=== PATIENT | female | born 1995 | race Caucasian/White ===

== ENCOUNTER 2022-07-04 08:19 | Outpatient (CLI) | payer OTHER, SELFPAY ==
[2022-07-04 09:55] LABS: Cholesterol* 192 mg/dL (90-199)
[2022-07-04 09:56] LABS: HDL Cholesterol* 38 mg/dL (>=50); LDL Cholesterol Calculated 126 mg/dL (<100); Triglycerides* 142 mg/dL (40-149)
== END 2022-07-04 08:20 | disposition home or self-care (01) ==
LOC: NFLDREF 08:20
PROVIDERS: Visit Provider Physician Assistant
DX: Z13.6 Encounter for screening for cardiovascular disorders (principal)
CPT/HCPCS: 80061

== ENCOUNTER 2023-07-21 12:53 | Outpatient (CLI) | payer OTHER, SELFPAY | END 2023-07-21 12:54 | disposition home or self-care (01) | LOC: NFLDREF 12:54 | PROVIDERS: Visit Provider Physician Assistant | DX: Z13.1 Encounter for screening for diabetes mellitus (principal); Z13.220 Encounter for screening for lipoid disorders | CPT/HCPCS: 80061; 82947 ==

== ENCOUNTER 2023-12-15 12:53 | Outpatient (CLI) | payer OTHER, SELFPAY | END 2023-12-15 12:54 | disposition home or self-care (01) | PROVIDERS: Visit Provider Advanced Practice Midwife | DX: Z34.91 Encounter for supervision of normal pregnancy, unspecified, first trimester (principal) | CPT/HCPCS: 86592; 86703; 86704; 86706; 86762; 86787; 86803; 86850; 86900; 86901; 87086; 87340 ==

== ENCOUNTER 2023-12-15 13:06 | Outpatient (CLI) | payer OTHER, SELFPAY ==
--- NOTE | 2023-12-15 13:00 | US_ITS ---
Patient: HAYLEY ANGELES Facility:?[facility] R[facility] Patient ID:?[id number] Site Patient ID:?[id number]. Site :?1995 Study:?US-OB Pelvis DATING AND VIABILITY-12/15/2023 1:47:42 PM Ordering Physician:?LAWRENCE LEONARDO Final Report: INDICATION: First trimester scan, establish dates. COMPARISON: None. TECHNIQUE: Real-time alston-scale imaging of the pelvis was performed. FINDINGS: Sonographic imaging demonstrates a single living intrauterine gestation. The embryo demonstrates a cardiac rate measuring 90 beats per minute. The embryo`s crown-rump length measurement of 0.22 cm corresponds to a gestational age of 5 weeks 5 days with a sonographic due date of 08/11/2024. There is a normal- appearing yolk sac. There are no gross abnormalities noted within the embryo at this early state of development. The gestational sac has a normal appearance. There is no evidence of a perigestational hemorrhage. The amount of fluid within the sac appears appropriate for gestational age. The cervix is closed. The myometrium appears normal. The ovaries are of normal size. Corpus luteal cyst right ovary. There are no suspicious fluid collections noted in the cul-de-sac. IMPRESSION: Single living intrauterine with sonographic gestational age 5 weeks 5 days and sonographic due date of 08/11/2024. heart rate is slightly low, due to very early IUP. Follow-up in 2-3 weeks recommended. Dictated by Clement Howard MD @ 12/16/2023 5:42:13 AM Signed by:?Clement Howard MD @12/16/2023 5:42:13 AM (Electronic Signature)
== END 2023-12-15 13:07 | disposition home or self-care (01) ==
LOC: US 13:07
PROVIDERS: Visit Provider Physician Assistant
DX: Z34.91 Encounter for supervision of normal pregnancy, unspecified, first trimester (principal); O36.8310 Maternal care for abnormalities of the fetal heart rate or rhythm, first trimester, not applicable or unspecified; Z3A.01 Less than 8 weeks gestation of pregnancy
CPT/HCPCS: 76817

== ENCOUNTER 2023-12-21 09:18 | Outpatient (CLI) | payer OTHER, SELFPAY | END 2023-12-21 09:19 | disposition home or self-care (01) | LOC: NFLDREF 09:19 | PROVIDERS: PCP Advanced Practice Midwife; Visit Provider Advanced Practice Midwife | DX: O20.0 Threatened abortion (principal); Z3A.01 Less than 8 weeks gestation of pregnancy | CPT/HCPCS: 84702 ==

== ENCOUNTER 2023-12-23 11:48 | Outpatient (CLI) | payer OTHER, SELFPAY | END 2023-12-23 11:49 | disposition home or self-care (01) | LOC: NFLDREF 12-25 10:54 | PROVIDERS: Visit Provider Advanced Practice Midwife | DX: O20.0 Threatened abortion (principal); Z3A.01 Less than 8 weeks gestation of pregnancy | CPT/HCPCS: 84702 ==

== ENCOUNTER 2023-12-24 11:08 | Outpatient (CLI) | payer OTHER, SELFPAY | END 2023-12-24 11:09 | disposition home or self-care (01) | LOC: NFLDREF 11:09 | PROVIDERS: Visit Provider Physician Assistant | DX: O20.0 Threatened abortion (principal) | CPT/HCPCS: 76817; J2791 ==

== ENCOUNTER 2023-12-29 13:38 | Outpatient (CLI) | payer OTHER, SELFPAY ==
--- NOTE | 2023-12-29 14:00 | US_ITS ---
Patient: HAYLEY ANGELES Facility:?[facility] Patient ID:?[id number] Site Patient ID:?[id number]. Site :?1995 Study:?US-OB Pelvis -12/29/2023 2:09:51 PM Ordering Physician:JESUS GATICA Final Report: INDICATION: Recurrent loss Comparison ultrasound 12/24/2023, 12/15/2023 TECHNIQUE: Real-time alston-scale imaging of the pelvis was performed. FINDINGS: Presence of intrauterine with crown-rump length measuring 5 millimeters corresponding to 6 weeks 1 day with. Gestational sac measures 2.3 centimeters cardiac activity not detected on color Doppler. M-mode Doppler was not obtained. No perigestational hemorrhage. IMPRESSION: Intrauterine with crown-rump length measuring 5 millimeters corresponding to 6 weeks 1 day cardiac activity was not detected by color Doppler when previously documented on 12/15/2023. Findings likely reflect demise. However to be conservative follow-up ultrasound would be recommended with M mode documentation of presence or absence of cardiac activity. Dictated by Yumiko Morse MD @ 12/30/2023 5:49:52 AM Signed by:?Yumiko Morse MD @12/31/2023 9:24:08 AM (Electronic Signature)
== END 2023-12-29 13:39 | disposition home or self-care (01) ==
LOC: US 13:38
PROVIDERS: Visit Provider Advanced Practice Midwife
DX: O26.21 Pregnancy care for patient with recurrent pregnancy loss, first trimester (principal); Z3A.01 Less than 8 weeks gestation of pregnancy
CPT/HCPCS: 76817

== ENCOUNTER 2023-12-31 08:40 | Day surgery (SDC) | payer OTHER, SELFPAY ==
[2023-12-31] MEDS: LACTATED RINGERS 1000 ML 1,000 ML 100 ML IV (08:50)
[2023-12-31 09:04] VITALS: BMI 32.8
[2023-12-31 09:07] VITALS: BP 120/82; PULSE 100; RESP 16; TEMP 36.7; O2SAT 99
[2023-12-31] MEDS: SODIUM CHLORIDE 0.9 % (FLUSH) 10 ML SYRINGE IVF (09:20)
[2023-12-31 09:24] LABS: Hemoglobin* 14.5 gm/dL (12.0-16.0)
[2023-12-31] MEDS: DOXYCYCLINE HYCLATE 100 MG 200 MG PO (09:48)
[2023-12-31] MEDS: LIDOCAINE 1% MDV 20 ML INJECTION (10:51)
[2023-12-31] MEDS: miSOPROStoL 800 MCG/4 TABLET PR (11:01)
[2023-12-31 11:15] VITALS: BP 116/70; PULSE 66; RESP 16; TEMP 36.4; O2SAT 99
--- NOTE | 2023-12-31 11:15 | W.ANESCHARGE ---
Anesthesia Charges Start Date/Time Anesthesia Start Date: 12/31/23 Anesthesia Start Time: 10:34 Stop Date/Time Anesthesia Stop Date: 12/31/23 Anesthesia Stop Time: 11:15
[2023-12-31 11:30] VITALS: BP 115/74; PULSE 64; RESP 16; O2SAT 99
--- NOTE | 2023-12-31 11:30 | W.PM.GYNPROC ---
Procedure Note Date of procedure: 12/31/23 [address] [facility] bill your pro fee for this procedure?: Yes Pre-op diagnosis: Missed Post-op diagnosis: Missed Procedure: Suction, dilation and curettage Anesthesia: MAC Complications: None Surgeon: Cody Chamberlain MD Estimated blood loss (mL): 5 IV fluids (mL): 800 Urine Output (mL): 300 Pathology: specimen obtained, sent to pathology (Products of conception, microarray genetic testing) Condition: stable Disposition: same day Findings: Speculum exam: Cervix with evidence of previous cerclage, no abnormal discharge. Cervix slightly dilated, easy passage of dilators up to 7-8mm. Uterine sound of 8cm. Procedure Description: Risks, benefits, alternatives, and indications of the procedure were discussed with the patient. She voiced an understanding of the procedure and signed the consent. The patient was taken to the OR were MAC anesthesia was administered without difficulty. She was placed in the dorsal lithotomy position with Binu type stirrups. The patient was prepared and draped in the normal sterile fashion. Her bladder was emptied with in--out catheter. A bivalved speculum was inserted in the posterior aspect of the vagina. 5 mL 1% lidocaine was injected in the anterior lip of cervix, the single-tooth tenaculum was used to grasp the anterior lip of the cervix. The uterus was carefully sounded to 8 cm. Cervix was sequentially dilated with Hegar dilators up to 8mm. A 7 mm suction curette was advanced to the uterine fundus. The suction was then started. The products of conception were evacuated with the curette rotating on the outward movement, 3 passes completed. Afterwards a gentle, sharp curettage was then performed with a large curette. An 8mm suction curette was advanced to the uterine fundus. The suction was then started. Only blood noted to see coming out. The tenaculum was removed from the cervix and good hemostasis was noted after application of silver nitrate. 800mcg of rectal Cytotec placed. The patient tolerated the procedure well. Instrument and sponge counts were correct x2. Patient was taken to the recovery room in a stable condition. The patient will go home after recovering from anesthesia and meeting all the criteria for discharge. She was given the instructions regarding follow-up visit in 2 [facility] and instructions for pain medication.
--- NOTE | 2023-12-31 11:42 | W.PM.H&PU ---
History & Physical Update History & Physical Update H&P Reviewed and patient assessed: No changes noted
[2023-12-31 11:45] VITALS: BP 114/70; PULSE 66; RESP 16; O2SAT 99
[2023-12-31 12:00] VITALS: BP 115/77; PULSE 66; RESP 16; O2SAT 99
[2023-12-31 12:15] VITALS: BP 112/74; PULSE 70; RESP 16; O2SAT 99
== END 2023-12-31 12:23 | disposition home or self-care (01) ==
LOC: OR 08:40
PROVIDERS: Visit Provider Obstetrics & Gynecology
PROC: (CPT 59820; principal; 2023-12-31 10:00)
DX: O02.1 Missed abortion (principal)
CPT/HCPCS: 59820; 01965; 36415; 81229; 85018; 88305; A9270; J1100; J1630; J1885; J2250; J2405; J2704; J3010; J7120

== ENCOUNTER 2024-01-03 11:27 | Emergency (ER) | payer OTHER, SELFPAY ==
[2024-01-03] VITALS (23 sets, daily range): BP systolic 113–149; BP diastolic 55–106; PULSE 63–109; RESP 16–24; TEMP 36.9; O2SAT 94–99
--- NOTE | 2024-01-03 11:36 | ED_ITS ---
HPI - Abdominal Pain General Chief Complaint: Abdominal Pain Stated Complaint: cramping/pain abd Time Seen by Provider: 01/03/24 11:33 History of Present Illness HPI narrative: This 28-year-old female comes in with severe abdominal pain that began this morning. She had a miscarriage with subsequent D and C3 days ago. She states that very severe and somewhat crampy pain in her lower abdomen began this morning. She does not report any fevers or dysuria symptoms. Related Data Home Medications Medication Instructions Recorded Confirmed Lactobacillus rhamnosus GG 20 cell PO 12/15/23 12/29/23 billion cell capsule (Probiotic Digestive Care) docosahexaenoic acid 200 mg mg PO 12/15/23 12/29/23 capsule ( DHA) Previous Rx's Medication Instructions Recorded acetaminophen 500 mg tablet 1,000 mg (2 x 500 mg) PO Q6H PRN 12/31/23 Pain #10 tabs ibuprofen 600 mg tablet 600 mg PO Q6H PRN Pain #15 tabs 12/31/23 hydrocodone 5 mg-acetaminophen 325 1 tab PO Q4-6H PRN pain #15 tabs 01/03/24 mg tablet ketorolac 10 mg tablet 10 mg PO Q8H 5 days #15 tabs 01/03/24 Allergies Allergy/AdvReac Type Severity Reaction Status Date / Time chlorhexidine Allergy Unknown Unknown Verified 01/03/24 12:28 Review of Systems Status of ROS Reports: 10 or more systems reviewed and unremarkable except as noted in History and below Narrative Constitutional: No fevers, no weight gain or loss. Eyes: No discharge. No vision changes. HENT: No congestion, no sore throat, no ear pain. Cardiovascular: No chest pain, no palpitations. Respiratory: No shortness of breath, no wheezes, no cough. Gastrointestinal: Severe lower abdominal pain. Genitourinary: No dysuria, no hematuria. Musculoskeletal: Normal range of motion. Skin: No rashes, no pruritis. Neurological: No dizziness, weakness, sensory change, speech change. Endo/Heme/Allergies: No bruising or bleeding. No polydipsia. Pysch: no suicidality, no anxiety, no insomnia. All other systems reviewed and are negative. 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 Nonsmoker. No alcohol use. Feels safe at home and no concerns with abuse. What is your current living situation?: I presently have a place to live Problems where you live: no known problems In the past 12 months, utilities in danger of being shut off: no In past 12 months, lack of transportation kept you from medical appts, meetings, work, or getting things needed for daily living: no In the past 12 mos, have been you worried that your food would run out before you had money to buy more?: never true In the past 12 mos, the food you bought just didn't last and you didn't have money to buy more?: never true Smoking Status: Never smoker Do you use any of these nicotine containing products: None How often do you have a drink containing alcohol: never How often do you have six or more drinks on one occasion: Never AUDIT-C Alcohol total score: 0 Non-prescribed substance use: denies use Caffeine: Yes How often does anyone, including family, friends and others, physically hurt you : never How often does anyone, including family, friends and others, insult or talk down to you: never How often does anyone, including family, friends and others, threaten you with harm: never How often does anyone, including family, friends and others, scream or curse at you: never Little interest or pleasure in doing things: not at all Feeling down, depressed, or hopeless: not at all Are you using contraception or practicing any form of control: No Exam Narrative: Exam Narrative: Constitutional: Well-developed, well-nourished, no acute distress. HEENT: Normocephalic, atraumatic. Neck: Normal range of motion. Nontender. Supple. Heart: Regular. No murmurs. Normal rate. Intact distal pulses. Lungs: Clear to auscultation. No chest discomfort. No wheezes, rhonchi, or rales. Abdomen: Severe lower abdominal pain with some constant and crampy features. Genitalia: Deferred. Back: No midline tenderness. Normal range of motion. Extremities: Normal range of motion. No injury. Skin: Intact. No rash. Warm. No erythema or pallor. Neurologic: No altered sensation. No weakness. Alert and oriented. Psychiatric: No suicidality. No anxiety or depression. No insomnia. Nursing notes and vitals signs are reviewed. Const: Vital Signs, click to edit/add: Vital Signs - 24 hr 01/03/24 11:33 01/03/24 11:47 01/03/24 12:03 Temperature 98.5 F Pulse Rate 79 Pulse Rate [Pulse Oximeter] 109 H Respiratory Rate 24 Blood Pressure 115/69 Blood Pressure [Ri ght Upper Arm] 149/106 H Pulse Oximetry 99 98 98 Oxygen Delivery Me thod Room Air 01/03/24 12:04 01/03/24 12:05 01/03/24 12:26 Temperature Pulse Rate 85 81 93 Pulse Rate [Pulse Oximeter] Respiratory Rate Blood Pressure 124/77 Blood Pressure [Ri ght Upper Arm] Pulse Oximetry 99 99 97 Oxygen Delivery Me thod 01/03/24 12:27 01/03/24 12:28 01/03/24 12:30 Temperature Pulse Rate 79 71 83 Pulse Rate [Pulse Oximeter] Respiratory Rate Blood Pressure 121/78 Blood Pressure [Ri ght Upper Arm] Pulse Oximetry 97 96 96 Oxygen Delivery Tx thod 01/03/24 12:45 01/03/24 13:06 01/03/24 13:07 Temperature Pulse Rate 81 74 80 Pulse Rate [Pulse Oximeter] Respiratory Rate Blood Pressure 131/74 Blood Pressure [Ri ght Upper Arm] Pulse Oximetry 95 98 94 Oxygen Delivery Me thod 01/03/24 13:15 01/03/24 13:30 01/03/24 13:45 Temperature Pulse Rate 76 64 81 Pulse Rate [Pulse Oximeter] Respiratory Rate Blood Pressure Blood Pressure [Ri ght Upper Arm] Pulse Oximetry 96 98 98 Oxygen Delivery Me thod Course Vital Signs Vital signs: Initial Vital Signs Temperature 98.5 F 01/03/24 11:33 Temperature Source Temporal Artery Scan 01/03/24 11:33 Pulse Rate 109 H 01/03/24 11:33 Respiratory Rate 24 01/03/24 11:33 Blood Pressure 149/106 H 01/03/24 11:33 Blood Pressure Mean 120 H 01/03/24 11:33 Blood Pressure Position Supine 01/03/24 11:33 Pulse Oximetry 99 01/03/24 11:33 Oxygen Delivery Method Room Air 01/03/24 11:33 Vital Signs Temperature 98.5 F 01/03/24 11:33 Pulse Rate 109 H 01/03/24 11:33 Respiratory Rate 24 01/03/24 11:33 Blood Pressure 149/106 H 01/03/24 11:33 Pulse Oximetry 99 01/03/24 11:33 Oxygen Delivery Method Room Air 01/03/24 11:33 Temperature 98.5 F 01/03/24 11:33 Pulse Rate 81 01/03/24 13:45 Respiratory Rate 24 01/03/24 11:33 Blood Pressure 131/74 01/03/24 13:06 Pulse Oximetry 98 01/03/24 13:45 Oxygen Delivery Method Room Air 01/03/24 11:33 Medications Administered Medications: Generic Name Dose Route Start Last Admin Trade Name Freq PRN Reason Stop Dose Admin Sodium Chloride 500 mls @ 500 mls/hr 01/03/24 13:24 01/03/24 13:15 0.9 % Sodium Chloride 500 Ml IV 01/03/24 14:23 Infused .Q1H ONE Infusion Discontinued Medications Generic Name Dose Route Start Last Admin Trade Name Freq PRN Reason Stop Dose Admin Hydromorphone HCl 0.5 mg 01/03/24 11:35 01/03/24 11:46 Hydromorphone 0.5 Mg/0.5 Ml Inj IVP 01/03/24 11:36 0.5 mg ONCE ONE Administration Hydromorphone HCl 0.5 mg 01/03/24 11:56 01/03/24 12:01 Hydromorphone 0.5 Mg/0.5 Ml Inj IVP 01/03/24 11:57 0.5 mg ONCE ONE Administration Hydromorphone HCl 0.5 mg 01/03/24 13:38 01/03/24 13:54 Hydromorphone 0.5 Mg/0.5 Ml Inj IVP 01/03/24 13:39 0.5 mg ONCE ONE Administration Sodium Chloride 500 mls @ 500 mls/hr 01/03/24 11:35 01/03/24 12:15 0.9 % Sodium Chloride 500 Ml IV 01/03/24 12:34 Infused .Q1H ONE Infusion Ondansetron HCl 4 mg 01/03/24 11:35 01/03/24 11:46 Ondansetron 2 Mg/Ml Inj IVP 01/03/24 11:36 4 mg ONCE ONE Administration MDM - Abdominal Pain MDM Narrative Medical decision making narrative: This 28-year-old female came in with severe abdominal pain. She was recovering from a AD and C that occurred 3 days ago because of a miscarriage. She was recovering normally until the severe pain began this morning. An IV was established and she received a dose of Dilaudid 0.5 mg intravenously which brought some minimal relief. A 2nd dose was administered which brought much better relief. Labs are acquired and CT imaging is obtained. The CT scan does not show any abnormality that would explain the patient's pain. Lab results also are reassuring. She does have the white count at around 13.5 but her temperature, heart rate, and blood pressure are all normal. I did contact the OB physician who did the D&C who is also on-call today, Dr. Ybarra, who reviewed results and came to see the patient. Patient is okay to be discharged home and did received prescriptions for Toradol and [place]. Lab Data Labs: Lab Results 01/03/24 Range/Units 11:40 WBC 13.47 H (4.50-11.00) K/uL RBC 5.48 H (4.00-5.20) m/uL Hgb 15.1 (12.0-16.0) gm/dL Hct 44.5 (33.0-51.0) % MCV 81 (80-100) fL MCH 28 (26-34) pg MCHC 34 (32-36) gm/dL RDW Coeff of Yolande 12.7 (11.5-15.5) % Plt Count 278 (140-440) K/uL Neut % (Auto) 79.1 H (42.0-72.0) % Lymph % (Auto) 14.0 L (20-44) % Love % (Auto) 5.6 (0.0-11.0) % Eos % (Auto) 0.7 (0.0-7.0) % Baso % (Auto) 0.2 (0.0-3.0) % Neut # (Auto) 10.70 H (1.7-7.0) K/uL Lymph # (Auto) 1.90 (0.90-2.90) K/uL Love # (Auto) 0.80 (0.00-0.90) K/UL Eos # (Auto) 0.10 (0.00-0.50) K/uL Baso # (Auto) 0.00 (0.00-0.30) K/uL Abs Immat Gran (auto) 0.10 (0.00-0.30) K/uL Imm/Tot Granulo (auto) 0.4 % Sodium 137 (135-149) mmol/L Potassium 4.0 (3.6-5.1) mmol/L Chloride 108 (96-114) mmol/L Carbon Dioxide 22 (20-32) mmol/L Anion Gap 7 (7-15) mEq/L BUN 10 (5-24) mg/dL Creatinine 0.6 (0.5-1.5) mg/dL Estimated GFR 126 ml/min Glucose 110 (60-115) mg/dL Calcium 9.5 (8.4-10.6) mg/dL Imaging Data CT scan - abdomen: Radiologist's impression: 1. No acute abdominopelvic pathology. The etiology of the patient`s pain is not elucidated on this examination. 2. Unremarkable appearance of the uterus, however CT is limited in its evaluation. If clinically warranted, consider further evaluation with sonography. Discharge Plan Discharge Clinical Impression: Abdominal pain Patient Disposition: Home, Self-Care Condition: Improved Additional Instructions: Take medication as needed and indicated. Activity as tolerated. Follow up with MD or return if worsening. Prescriptions: New hydrocodone-acetaminophen 5-325 mg tablet 1 tab PO Q4-6H PRN (Reason: pain) Qty: 15 0RF ketorolac 10 mg tablet 10 mg PO Q8H 5 Days Qty: 15 0RF No Action DHA 200 mg capsule PO Probiotic Digestive Care 20 billion cell capsule PO acetaminophen 500 mg Tablet 1,000 mg PO Q6H PRN (Reason: Pain) Qty: 10 0RF ibuprofen 600 mg Tablet 600 mg PO Q6H PRN (Reason: Pain) Qty: 15 0RF Follow Up/Referrals: Provider,Not a Local [Primary Care Provider] - Stand Alone Forms: MyHealth Info Instructions
[2024-01-03] MEDS: ONDANSETRON 2 MG/ML inj 4 MG IVP (11:46)
[2024-01-03] MEDS: 0.9 % SODIUM CHLORIDE 500 ML 500 ML IV ×2 (11:46→12:15)
[2024-01-03] MEDS: HYDROmorphone 0.5 mg/0.5 ml inj IVP ×3 (11:46→13:54)
[2024-01-03 11:54] LABS: Basophils Percent Auto 0.2 % (0.0-3.0); Eosinophils Percent Auto 0.7 % (0.0-7.0); Hematocrit 44.5 % (33.0-51.0); Hemoglobin* 15.1 gm/dL (12.0-16.0); Immature Granulocytes Pct Auto 0.4 %; Mean Corpuscular HGB Conc 34 gm/dL (32-36); Mean Corpuscular Hemoglobin 28 pg (26-34); Mean Corpuscular Volume 81 fL (80-100); Monocytes Percent Auto 5.6 % (0.0-11.0); Neutrophils Percent Auto 79.1 % (42.0-72.0); Platelet Count* 278 K/uL (140-440); RDW Coefficient of Variation % 12.7 % (11.5-15.5); Red Blood Count 5.48 m/uL (4.00-5.20); White Blood Count* 13.47 K/uL (4.50-11.00)
--- NOTE | 2024-01-03 11:56 | CT_ITS ---
Patient: HAYLEY ANGELES Facility:?[facility] RIS Patient ID:?[id number] Site Patient ID:?[id number] Site :?1995 Study:?CT-Abdomen/Pelvis W/ 93CC ISOVUE 370-01/03/2024 12:33:01 PM Ordering Physician:EUGENE Final Report: INDICATION: Abdominal pain. TECHNIQUE: Multiplanar CT examination of the abdomen and pelvis was performed after the administration of 93 mL Isovue 370 intravenous contrast. COMPARISON: None. FINDINGS: Lower chest: No focal consolidation. Normal heart size. No pleural effusions or pneumothorax. Liver: Unremarkable. Gallbladder: Unremarkable. Biliary: Unremarkable. Pancreas: Within normal limits. Spleen: Unremarkable. Adrenal glands: Unremarkable. Renal/ureters/bladder: Normal in size and symmetrically enhancing. No obstructive uropathy. No hydronephrosis or obstructive urinary calculi. No suspicious renal masses. The ureters appear unremarkable. The bladder is within normal limits. Pelvis: The uterus appears unremarkable. No adnexal masses. Gastrointestinal: No bowel wall thickening or bowel obstruction. Normal appendix. No significant colonic diverticulosis. Moderate colonic stool burden. Vasculature: No aortic aneurysm. The portal vein remains patent. No significant atherosclerotic calcifications. Lymph nodes: No pathologic lymphadenopathy by size criteria. Peritoneum: Trace free fluid in the pelvis, possibly reactive. No pneumoperitoneum. No drainable fluid collections. Abdominal wall/soft tissues: Unremarkable. Bones: No acute osseous abnormalities. IMPRESSION: 1. No acute abdominopelvic pathology. The etiology of the patient`s pain is not elucidated on this examination. 2. Unremarkable appearance of the uterus, however CT is limited in its evaluation. If clinically warranted, consider further evaluation with sonography. Please note that all CT scans at this facility use dose modulation, iterative reconstruction, and/or weight-based dosing when appropriate to reduce radiation dose to as low as reasonably achievable. Dictated by Wes Beard MD @ 01/03/2024 1:04:55 PM Signed by:?Wes Beard MD @01/03/2024 1:04:55 PM (Electronic Signature)
[2024-01-03 12:01] LABS: Chloride* 108 mmol/L (96-114); Sodium* 137 mmol/L (135-149)
[2024-01-03 12:04] LABS: Creatinine* 0.6 mg/dL (0.5-1.5); Estimated Glomerular Filt Rate 126 ml/min
[2024-01-03 12:05] LABS: Anion Gap 7 mEq/L (7-15); Blood Urea Nitrogen* 10 mg/dL (5-24); Calcium* 9.5 mg/dL (8.4-10.6); Carbon Dioxide* 22 mmol/L (20-32); Glucose* 110 mg/dL (60-115)
[2024-01-03 12:06] LABS: Slide Review Reflex No
--- NOTE | 2024-01-03 14:13 | US_ITS ---
Patient: HAYLEY ANGELES Facility:?[facility] R[facility] Patient ID:?[id number] Site Patient ID:?[id number]. Site :?1995 Study:?US-Pelvis PELVIS TV-01/03/2024 3:27:40 PM Ordering Physician:?ALEBRTO GARCIA M.D. Final Report: INDICATION: Pelvic pain. D&C x3 days. TECHNIQUE: Ultrasound pelvis transabdominal and transvaginal for better assessment or to better visualize the endometrium. Real-time sonographic images with spectral and color Doppler imaging of the ovaries were obtained. COMPARISON: None. FINDINGS: Uterus: 9.8 x 5.4 x 6.3 cm. Normal echotexture of the myometrium. No masses. Endometrium: Transvaginal imaging was performed to better evaluate the endometrium. Heterogeneous/echogenic endometrium which measures 14 mm, without significant vascularity. Right ovary 3.3 x 3.1 x 3.8 centimeters. Left ovary 4.6 x 2.2 x 2.4 centimeters. No ovarian or adnexal masses. Normal arterial and venous blood flow is demonstrated in both ovaries. Cul-de-sac: Trace free fluid. IMPRESSION: Mildly enlarged heterogeneous/echogenic endometrium, measuring 14 millimeters, without significant vascularity. Although this could represent possible blood clot, if pain for bleeding persists, consider direct visualization as retained products is not excluded. Otherwise unremarkable uterus and ovaries for age. Dictated by Tim Mcdowell MD @ 01/03/2024 3:43:37 PM Signed by:?Tim Mcdowell MD @01/03/2024 3:43:37 PM (Electronic Signature)
== END 2024-01-03 16:13 | disposition home or self-care (01) ==
PROVIDERS: Emergency Provider Emergency Medicine Emergency Medical Services
DX: R10.9 Unspecified abdominal pain (principal)
CPT/HCPCS: 36415; 74177; 76830; 80048; 85025; 93976; 94761; 96374; 96375; 96376; 99284; J1170; J2405; J7030; Q9967

== ENCOUNTER 2024-02-03 10:42 | Outpatient (CLI) | payer OTHER, SELFPAY | END 2024-02-03 10:43 | disposition home or self-care (01) | PROVIDERS: Visit Provider Obstetrics & Gynecology | DX: O02.1 Missed abortion (principal) | CPT/HCPCS: 84702 ==

== ENCOUNTER 2024-02-05 11:31 | Outpatient (CLI) | payer OTHER, SELFPAY | END 2024-02-05 11:32 | disposition home or self-care (01) | LOC: NFLDREF 02-09 22:39 | PROVIDERS: Visit Provider Obstetrics & Gynecology | DX: Z32.00 Encounter for pregnancy test, result unknown (principal) | CPT/HCPCS: 84702 ==

== ENCOUNTER 2024-02-10 10:53 | Outpatient (CLI) | payer OTHER, SELFPAY | END 2024-02-10 10:54 | disposition home or self-care (01) | LOC: NFLDREF 02-12 10:57 | PROVIDERS: Visit Provider Obstetrics & Gynecology | DX: N96 Recurrent pregnancy loss (principal) | CPT/HCPCS: 84439; 84443; 86376; 88262 ==

== ENCOUNTER 2024-02-10 10:54 | Outpatient (CLI) | payer OTHER, SELFPAY ==
--- NOTE | 2024-02-10 11:00 | CRLHL7_ITS ---
For Patients: As a result of the Century Cures Act, medical imaging exams and procedure reports are released immediately into your electronic medical record. You may view this report before your referring provider. If you have questions, please contact your health care provider. INDICATION: Recurrent loss COMPARISON: 01/03/2024 TECHNIQUE: 2D alston scale and color Doppler images were acquired of the pelvis using a transabdominal and transvaginal approach. FINDINGS: Sonographic images demonstrate a normal size and smooth outer contour of the uterus. Uterus measures 8.0 cm in length by 4.2 cm in AP diameter by 5.2 cm in transverse dimension. The myometrium has a normal uniform echotexture. The endometrium measures 4 millimeters in the uterine fundus and 1.2 cm in the mid uterus. The mid uterine endometrial stripe is heterogeneous with a focal area of nodular like appearance measuring 11 x 8 x 8 millimeters. The right ovary measures 4.2 x 2.6 x 2.5 cm in size and the left ovary measures 4.0 x 1.7 x 2.6 cm. The ovaries demonstrate normal arterial and venous blood flow on color Doppler analysis. There are no suspicious fluid collections within the cul-de-sac. IMPRESSION: Heterogeneity of the mid endometrial stripe with associated thickening and possible underlying polyp. The mid endometrial thickness is 1.2 cm and the possible polyp measures 1.1 cm. The overall appearance is similar to the prior study, therefore, blood clot is considered less likely. Dictated by Clement Howard MD @ 02/10/2024 7:04:48 PM (Electronically Signed)
== END 2024-02-10 10:55 | disposition home or self-care (01) ==
LOC: US 10:54
PROVIDERS: Visit Provider Obstetrics & Gynecology
DX: N96 Recurrent pregnancy loss (principal)
CPT/HCPCS: 76830; 76856; 84439; 84443

== ENCOUNTER 2024-03-03 06:02 | Day surgery (SDC) | payer OTHER, SELFPAY ==
--- OUTSIDE RECORDS SUMMARY | 2024-03-03 06:04 | XMS_ITS | Referral Summary ---
Author Organization [facility] Address [address] [place] [id number] Care Team Providers Care Lead Software Architect Name Role Phone No Ref-Primary, Physician Primary Care Provider Allergies Active Allergy Reactions Criticality Noted Date Comments Chlorhexidine Rash Low 12/31/2020 Medications Medication Sig Dispensed Refills Start Date End Date Status progesterone (PROMETRIUM) 200 MG capsule Take 200 mg by mouth daily Active Vit-Fe Fumarate-FA ( MULTIVITAMIN W/IRON) 27-0.8 MG tabletIndications:Pregn shauna Take 1 tablet by mouth daily Active Active Problems Problem Noted Date Diagnosed Date Encounter for triage in patient 021 Cervical insufficiency durin g in second trimester, antepartum 12/31/2020 Social History Tobacco Use Types Packs/Day Years Used Date Smoking Tobacco: Never Smokeless Tobacco: Never Alcohol Use Standard Drinks/Week Comments Not Currently 0 (1 standard drink = 0.6 oz pur e alcohol) Adolescent Education Answer Date Record ed Getting School Help Needed Not on file 05/09 Sex and Gender Information Value Date Recorded Sex Assigned at Not on file Gender Identity Not on file Sexual Orientation Not on file Last Filed Vital Signs Vital Sign Reading Time Taken Comments Blood Pressure 127/62 01/01/2021 9:13 AM CDT Pulse 68 12/31/2020 9:30 PM CDT Temperature 36.9 ??C (98.5 ??F) 01/01/2021 3:40 PM CD T Respiratory Rate 18 01/01/2021 3:40 PM CDT Oxygen Saturation 98% 01/01/2021 9:13 AM CDT Inhaled Oxygen Concentration - - Weight 84.6 kg (186 lb 9.6 oz) 01/01/2021 2:49 A M CDT Height - - Body Mass Index - - Plan of Treatment Not on file Procedures Procedure Name Priority Date/Time Associated Diagnosis Comments NEISSERIA GONORRHOEAE PCR Routine 12/31/2020 7:52 PM CDT from Last 3 Months or Most Recently Relevant to Health Maintenance Results * Neisseria gonorrhoea PCR (12/31/2020 7:52 PM CDT) Specimen Descrip Endocervical 2020 8:04 PM CDT [facility] N Gonorrhea PCR Negative NEG^Nega tive 01/01/2021 12:53 PM CDT [facility], [facility] Comment: Negative for N. gonorrhoeae rRNA by oracle hyperion consultant mediated amplification. A negative result by oracle hyperion consultant mediated amplification does not preclude the presence of N. gonorrhoeae infection because results are dependent on proper and adequate collection, absence of inhibitors, and sufficient rRNA to be detected. Endocervical cytologic material (specimen) 12/31/2020 7:52 PM CDT 12/31/2020 8:03 PM CDT Jen Fleming MD LAB - MICRO GENERAL ORDERABLES [facility], [facility] [address] [place] [address], [address] [address] from Last 3 Months or Most Recently Relevant to Health Maintenance Advance Directives For more information, please contact: [phone] * Full Code (Latest Code Status on File) Date Activated Date Inactivated Comments 01/01/2021 10:37 AM 01/01/2021 7:15 PM All basic a nd advanced life-sustaining interventions are performed as appropriate Question Answer Comments Code status determined by: Discussion with patie nt/ legal decision maker Care Teams Lead Software Architect Relationship Specialty Start Date End Date No Ref-Primary, Physician PCP - General 12/31/20
--- OUTSIDE RECORDS SUMMARY | 2024-03-03 06:04 | XMS_ITS | Clinical Summary ---
Author Organization [facility] Address [address] [place] [address] Care Team Providers Care Crab Steamer Name Role Phone No Ref-Primary, Physician Primary [...] Specimen Descrip Endocervical 2020 8:04 PM CDT [facility] N Gonorrhea PCR Negative NEG^Nega tive 01/01/2021 12:53 PM CDT [facility], [facility] Comment: Negative for N. gonorrhoeae rRNA by web application developer mediated amplification. A negative result by web application developer mediated amplification does not preclude the presence of N. gonorrhoeae infection because results are dependent on proper and adequate collection, absence of inhibitors, and sufficient rRNA to be detected. Endocervical cytologic material (specimen) 12/31/2020 7:52 PM CDT 12/31/2020 8:03 PM CDT Jen Fleming MD LAB - MICRO GENERAL ORDERABLES [facility], [facility] [address] [place] [address], [address] [address] from Last 3 Months or Most Recently Relevant to Health Maintenance Advance Directives For more information, please contact: [phone] * Full Code (Latest Code Status on File) Date Activated Date Inactivated Comments 01/01/2021 10:37 AM 01/01/2021 7:15 PM All basic a nd advanced life-sustaining interventions are performed as appropriate Question Answer Comments Code status determined by: Discussion with patie nt/ legal decision maker Care Teams Crab Steamer Relationship Specialty Start Date End Date No Ref-Primary, Physician PCP - General 12/31/20
[2024-03-03 06:21] VITALS: BMI 31.9
[2024-03-03 06:28] VITALS: BP 126/88; PULSE 84; RESP 18; TEMP 37.1; O2SAT 98
[2024-03-03] MEDS: SODIUM CHLORIDE 0.9 % (FLUSH) 10 ML SYRINGE IVF (06:30)
[2024-03-03] MEDS: LACTATED RINGERS 1000 ML 1,000 ML 100 ML IV (06:30)
[2024-03-03 06:32] LABS: Ur HCG Qualitative* Negative (Negative)
[2024-03-03 06:37] LABS: Hemoglobin* 14.8 gm/dL (12.0-16.0)
--- NOTE | 2024-03-03 07:11 | W.PM.H&PU_ITS ---
History & Physical Update History & Physical Update H&P Reviewed and patient assessed: No changes noted H&P Updates: Margo is seen in pre-op prior to planned hysteroscopy D&C for prolonged bleeding after early loss and suction D&C in December. Pelvic US was obtained with thickening in the mid-uterine body suspicious for focal anomaly. Please see Dr. Chamberlain's note for complete details. Affirmed operative plan with Margo today, where I will start with hysterosc opy and proceed with directed sampling as needed. We reviewed potential role for sharp or suction curettage prn. Discussed risks of normal hysteroscopy today, bleeding, infection, damage to surrounding structures, perforation and medical complications (VTE, heart attack, stroke). All questions answered. Written consent obtained. Plan pathologic evaluation of endometrial curettings today. No antibiotics indicated. Discussed post-operative restrictions and return precautions. Post- visit scheduled in 3 weeks due to patient vacation.
--- NOTE | 2024-03-03 07:23 | W.ANESCHARGE ---
Anesthesia Charges Start Date/Time Anesthesia Start Date: 03/03/24 Anesthesia Start Time: 07:14 Stop Date/Time Anesthesia Stop Date: 03/03/24 Anesthesia Stop Time: 08:04
[2024-03-03] MEDS: BUPIVACAINE 0.5% 30 ML INJECTION (07:43)
[2024-03-03 08:06] VITALS: BP 114/69; PULSE 90; RESP 16; TEMP 36.9; O2SAT 94
[2024-03-03 08:15] VITALS: BP 122/79; PULSE 75; RESP 16; O2SAT 98
--- NOTE | 2024-03-03 08:26 | W.PM.GYNPROC ---
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 Left cavity and tubal ostia is unremarkable with proliferative endometrial appearance. Post-procedure hysteroscopy: Congregational of normal endometrial cavity appearance and contour. Unremarkable bilateral tubal ostia. Cervical polyp at 2 o'clock. Procedure Description: Procedure in detail: Patient was taken to the operating room with IV running. She was positioned in dorsal lithotomy position with her legs fully supported in Yellofin stirrups. Monitored anesthesia care was administered. She was prepped and draped in the usual sterile fashion. Exam under anesthesia was performed for the above-noted findings. Speculum was inserted. Cervix visualized and grasped along the anterior lip with a single-tooth tenaculum. Small and entirely benign appearing cervical polyp was noted about 2 o'clock. Paracervical block was performed in the usual fashion with a total of 20 mL 0.5% bupivacaine. Uterine sounding length was 7 cm. Cervix was serially dilated to accommodate the TRUCLEAR hysteroscope. This was assembled with saline inflow and outflow in place. The line was flushed of bubbles. The hysteroscope was advanced through the cervix into the endometrial cavity for the above noted findings. The tissue morcellator was then inserted through the operating channel. Window lock was performed. Under direct visualization, the endometrial cavity was curetted along the right side starting at the uterine fundus and then working distally. All tissue was easily resected with soft tissue morcellation blade. Curettage via TruClear was performed until all abnormal tissue was resected and normal endometrial cavity was restored. The hysteroscope and morcellator were then removed from the uterus. Tenaculum was removed from the anterior lip of cervix. Hemostasis was noted. Patient tolerated procedure well. She was taken to recovery area in stable condition. Surgical debrief was completed - EBL 5cmL, urine output 95 mL, fluid deficit 35 mL, IV fluid 400 mL. Path specimen is endometrial curettings, confirmed this was obtained and sent.
[2024-03-03 08:30] VITALS: BP 122/61; PULSE 74; RESP 16; O2SAT 96
[2024-03-03 08:45] VITALS: BP 116/82; PULSE 66; RESP 16; TEMP 36.7; O2SAT 98
--- NOTE | 2024-03-03 08:52 | W.ANESCHARGE ---
Anesthesia Charges Start Date/Time Anesthesia Start Date: 03/03/24 Anesthesia Start Time: 07:14 Stop Date/Time Anesthesia Stop Date: 03/03/24 Anesthesia Stop Time: 08:04
== END 2024-03-03 09:14 | disposition home or self-care (01) ==
LOC: OR 06:02
PROVIDERS: Visit Provider Obstetrics & Gynecology
PROC: 0UDB8ZZ Extraction of Endometrium, Via Natural or Artificial Opening Endoscopic (ICD-10-PCS; CPT 58558; principal; 2024-03-03 07:15)
DX: N93.8 Other specified abnormal uterine and vaginal bleeding (principal); N84.1 Polyp of cervix uteri; Z87.59 Personal history of other complications of pregnancy, childbirth and the puerperium
CPT/HCPCS: 58558; 00952; 01961; 36415; 81025; 85018; 86850; 86900; 86901; 88305; J0665; J1100; J1885; J2250; J2405; J2704; J3010; J7120

== ENCOUNTER 2024-06-06 11:13 | Outpatient (CLI) | payer OTHER, SELFPAY ==
--- OUTSIDE RECORDS SUMMARY | 2024-06-06 11:16 | XMS_ITS | Referral Summary ---
Author Organization [facility] Address [address] [place] [address] Care Team Providers Care Leave Specialist Name Role Phone No Ref-Primary, Physician Primary [...] - Plan of Treatment Not on file Advance Directives For more information, please contact: [phone] * Full Code (Latest Code Status on File) Date Activated Date Inactivated Comments 01/01/2021 10:37 AM 01/01/2021 7:15 PM All basic a nd advanced life-sustaining interventions are performed as appropriate Question Answer Comments Code status determined by: Discussion with michael nt/ legal decision maker Care Teams Leave Specialist Relationship Specialty Start Date End Date No Ref-Primary, Physician PCP - General 12/31/20
--- OUTSIDE RECORDS SUMMARY | 2024-06-06 11:16 | XMS_ITS | Clinical Summary ---
Author Organization [facility] Address [address] [place] [address] Care Team Providers Care Chicken Boner Name Role Phone No Ref-Primary, Physician Primary [...] Advance Directives For more information, please contact: [phone] * Full Code (Latest Code Status on File) Date Activated Date Inactivated Comments 01/01/2021 10:37 AM 01/01/2021 7:15 PM All basic a nd advanced life-sustaining interventions are performed as appropriate Question Answer Comments Code status determined by: Discussion with michael nt/ legal decision maker Care Teams Chicken Boner Relationship Specialty Start Date End Date No Ref-Primary, Physician PCP - General 12/31/20
--- NOTE | 2024-06-06 11:30 | CRLHL7_ITS ---
For Patients: As a result of the Cures Act, medical imaging exams and procedure reports are released immediately into your electronic medical record. You may view this report before your referring provider. If you have questions, please contact your health care provider. LEFT BREAST ULTRASOUND CLINICAL HISTORY: LEFT breast lump. COMPARISON: None. TECHNIQUE: Real-time ultrasound imaging of LEFT breast with imaging documentation. FINDINGS: Targeted ultrasound LEFT breast 1 o`clock 5 cm from the nipple performed. Normal fibroglandular tissue is present. No fluid collection or mass. IMPRESSION: No suspicious findings. RECOMMENDATIONS: Clinical follow-up. Results and recommendations were discussed with the patient. BI-RADS Category 1: Negative A lay language report of this examination will be provided to the patient. Dictated by Clement Howard MD @ 06/06/2024 12:52:45 PM /Dictated by: Clement Howard MD @ 06/06/2024 12:52:00 PM (Electronically Signed)
== END 2024-06-06 11:14 | disposition home or self-care (01) ==
LOC: US 11:14
PROVIDERS: Visit Provider Physician Assistant
DX: N63.20 Unspecified lump in the left breast, unspecified quadrant (principal)
CPT/HCPCS: 76642

== ENCOUNTER 2024-07-26 09:09 | Outpatient (CLI) | payer OTHER, SELFPAY ==
--- OUTSIDE RECORDS SUMMARY | 2024-07-26 09:13 | XMS_ITS | Clinical Summary ---
Author Organization [facility] Address [address] [place] [id number] Care Team Providers Care Tombstone Polisher Name Role Phone No Ref-Primary, Physician Primary Care Provider Allergies Active Allergy Reactions Criticality Noted Date Comments Chlorhexidine Rash Low 12/31/2020 Medications progesterone (PROMETRIUM) 200 MG capsule Take 200 mg by mouth daily Active Vit-Fe Fumarate-FA ( MULTIVITAMIN W/IRON) 27-0.8 MG tabletIndications : Take 1 tablet by mouth daily Active [...] School Help Needed Not on file 05/09 Comments No Sex and Gender Information Value Date Recorded Sex Assigned at Not on file Legal Sex Female 11:40 AM CDT Gender Identity Not on file Sexual Orientation Not on file Last Filed Vital Signs Vital Sign Reading Time Taken Comments Blood Pressure 127/62 01/01/2021 9:13 AM CDT Pulse 68 12/31/2020 9:30 PM CDT Temperature 36.9 C (98.5 F) 01/01/2021 3:40 PM CDT Respiratory Rate 18 01/01/2021 3:40 PM CDT Oxygen Saturation 98% 01/01/2021 9:13 AM CDT Inhaled Oxygen Concentration - - Weight 84.6 kg (186 lb 9.6 oz) 01/01/2021 2:49 A M CDT Height - - Body Mass Index - - Plan of Treatment Not on file Insurance [employer] Advance Directives For more information, please contact: [phone] * Full Code (Latest Code Status on File) Date Activated Date Inactivated Comments 01/01/2021 10:37 AM 01/01/2021 7:15 PM All basic a nd advanced life-sustaining interventions are performed as appropriate Question Answer Comments Code status determined by: Discussion with patie nt/ legal decision maker Care Teams Tombstone Polisher Relationship Specialty Start Date End Date No Ref-Primary, Physician PCP - General 12/31/20
--- OUTSIDE RECORDS SUMMARY | 2024-07-26 09:13 | XMS_ITS | Referral Summary ---
Author Organization [facility] Address [address] [place] [address] Care Team Providers Care Instrument Repairer Name Role Phone No Ref-Primary, Physician Primary [...] Plan of Treatment Not on file Insurance [employer] Advance Directives For more information, please contact: [phone] * Full Code (Latest Code Status on File) Date Activated Date Inactivated Comments 01/01/2021 10:37 AM 01/01/2021 7:15 PM All basic a nd advanced life-sustaining interventions are performed as appropriate Question Answer Comments Code status determined by: Discussion with patie nt/ legal decision maker Care Teams Instrument Repairer Relationship Specialty Start Date End Date No Ref-Primary, Physician PCP - General 12/31/20
[2024-07-28 02:01] LABS: HPV Source Cervix; HPV, High Risk by TMA Not Detected
[2024-08-04 14:36] LABS: Pap Test Reviewed by Path Done
== END 2024-07-26 09:10 | disposition home or self-care (01) ==
PROVIDERS: Visit Provider Physician Assistant
DX: N92.6 Irregular menstruation, unspecified (principal); Z12.4 Encounter for screening for malignant neoplasm of cervix; Z13.6 Encounter for screening for cardiovascular disorders; Z13.1 Encounter for screening for diabetes mellitus
CPT/HCPCS: 80061; 82947; 83498; 83525; 84146; 84270; 84402; 84403; 84443; 87624; 87625; 88141; 88142

== ENCOUNTER 2024-12-13 08:58 | Outpatient (CLI) | payer OTHER, SELFPAY | END 2024-12-13 08:59 | disposition home or self-care (01) | LOC: NFLDREF 09:04 | PROVIDERS: PCP Family Medicine; Visit Provider Obstetrics & Gynecology | DX: N96 Recurrent pregnancy loss (principal) | CPT/HCPCS: 84702 ==

== ENCOUNTER 2025-05-11 12:21 | Outpatient (CLI) | payer OTHER, SELFPAY | END 2025-05-11 12:22 | disposition home or self-care (01) | LOC: NFLDUCREF 12:21 | PROVIDERS: Visit Provider Physician Assistant | DX: L02.91 Cutaneous abscess, unspecified (principal) | CPT/HCPCS: 87070 ==

== ENCOUNTER 2025-07-27 10:50 | Outpatient (CLI) | payer OTHER, SELFPAY | END 2025-07-27 10:51 | disposition home or self-care (01) | PROVIDERS: Visit Provider Physician Assistant | DX: Z13.9 Encounter for screening, unspecified (principal) | CPT/HCPCS: 80061; 82947; 84443 ==